=== PATIENT | female | born 1995 | race Caucasian/White ===

== ENCOUNTER 2018-11-28 12:09 | Outpatient (CLI) | payer BC ==
--- NOTE | 2018-11-28 15:11 | RAD ---
EXAM: XR Lumbar Spine Min 4 View PROVIDED CLINICAL HISTORY: Low back pain with sciatic pain on right. COMPARISON: 02/25/2017 FINDINGS: The vertebral body heights and intervertebral disc spaces are within normal limits. No fracture or pardo bluxation is seen. Views of the lumbar spine are stable when compared to the prior study. IMPRESSION: Normal radiographs lumbar spine.
== END 2018-11-28 12:10 | disposition home or self-care (01) ==
LOC: BICRAD 12:09
PROVIDERS: ATTEND Chiropractor Sports Physician
DX: M54.31 Sciatica, right side (principal)
CPT/HCPCS: 72110